=== PATIENT | male | born 1975 | race Caucasian/White ===

== ENCOUNTER 2016-08-04 02:02 | Observation (INO) | payer OTHER ==
[~2016-08-04 02:02] MED LIST: ASPIRIN EC81 MG PO
[2016-08-04] MEDS ORDERED: GLUCOPHAGE 500500 MG PO (02:51)
[2016-08-04] MEDS ORDERED: LIPITOR TAB 2020 MG PO ×2 (02:51→12:51)
[2016-08-04] MEDS ORDERED: PLAVIX 75 MG TA75 MG PO (02:52)
[2016-08-04] MEDS ORDERED: LISINOPRIL5 MG PO (02:52)
[2016-08-04] MEDS ORDERED: LOPRESSOR 25 MG25 MG PO (02:53)
[2016-08-04] MEDS ORDERED: NITROSTAT 0.40.4 MG SL (02:59)
[2016-08-04 04:42] LABS: HEMOGLOBIN 16.2 gm/dl (14.0-17.5); RED BLOOD COUNT 5.62 M/UL (4.20-5.50); WHITE BLOOD COUNT 14.1 K/UL (4.5-11.0)
[2016-08-04 05:07] LABS: BUN/CREATININE RATIO 13 (0-10)
[2016-08-04] MEDS ORDERED: IMDUR ER TAB 3030 MG PO (12:49)
== END 2016-08-04 13:30 | disposition left against medical advice (07) ==
LOC: ER1 02:02 → EDSTATUS 02:02 → CCU 03:02
PROVIDERS: Internal Medicine; ADMIT Internal Medicine Cardiovascular Disease
DX: I25.119 Atherosclerotic heart disease of native coronary artery with unspecified angina pectoris (principal); E78.5 Hyperlipidemia, unspecified; E11.9 Type 2 diabetes mellitus without complications; I25.2 Old myocardial infarction; I11.0 Hypertensive heart disease with heart failure; I50.22 Chronic systolic (congestive) heart failure; J44.9 Chronic obstructive pulmonary disease, unspecified; E66.9 Obesity, unspecified; D72.829 Elevated white blood cell count, unspecified; Z95.5 Presence of coronary angioplasty implant and graft; Z86.79 Personal history of other diseases of the circulatory system; Z68.34 Body mass index [BMI] 34.0-34.9, adult; Z82.49 Family history of ischemic heart disease and other diseases of the circulatory system; Z79.02 Long term (current) use of antithrombotics/antiplatelets; Z79.82 Long term (current) use of aspirin; Z79.899 Other long term (current) drug therapy
CPT/HCPCS: ECHO; 36415; 71010; 80053; 81001; 82150; 82550; 82553; 82962; 83036; 84484; 85025; 87040; 93005; 93306; 99285; C1769; G0378; J0583; J1644; J2405; J7030; J7040; Q9965

== ENCOUNTER → 2016-11-12 | Outpatient (CLI) | payer OTHER ==
[~2016-11-12] MED LIST changes: +GLUCOPHAGE 500500 MG PO; +IMDUR ER TAB 3030 MG PO; +LIPITOR TAB 2020 MG PO; +LISINOPRIL5 MG PO; +LOPRESSOR 25 MG25 MG PO; +NITROSTAT 0.40.4 MG SL; +PLAVIX 75 MG TA75 MG PO
== END ==
LOC: HEART 5 08:04
DX: I50.22 Chronic systolic (congestive) heart failure (principal); I25.5 Ischemic cardiomyopathy
CPT/HCPCS: 93306